=== PATIENT | male | born 1955 | race Two or more races ===

== ENCOUNTER → 2020-11-20 | Outpatient (CLI) | payer MEDICARE | END | disposition home or self-care (01) | LOC: STAR 14:54 | PROVIDERS: ATTEND Internal Medicine | DX: Z20.822 Contact with and (suspected) exposure to COVID-19 (principal) | CPT/HCPCS: U0003; U0005 ==

== ENCOUNTER 2020-11-24 11:49 | Day surgery (SDC) | payer MEDICARE ==
[~2020-11-24] VITALS: Ht 170.2 cm; Wt 84.9 kg
[2020-11-24] MEDS ORDERED: LORA10CA PO (13:00)
[2020-11-24] MEDS ORDERED: [UNRECOGNIZED DRUG - CODE] TRANSTRAC (13:00)
[2020-11-24 13:03] VITALS: BP 146/95
[2020-11-24] MEDS ORDERED: CHLORHEXIDINE 15 ML UDC ONE (13:16)
[2020-11-24] MEDS ORDERED: LACTATED RINGERS 1,000 ML IV SCH (13:30)
[2020-11-24] MEDS ORDERED: CHLORHEXIDINE 15 ML UDC PO ONE (13:30)
[2020-11-24] MEDS ORDERED: METOPROLOL 1 MG/ML, 5ML IV PRN (14:30)
[2020-11-24] MEDS ORDERED: HALOPERIDOL 5 MG/ML IV PRN (14:30)
[2020-11-24] MEDS ORDERED: MEPERIDINE/PF 25MG/0.5ML IVPush PRN (14:30)
[2020-11-24] MEDS ORDERED: PROMETHAZINE 25 MG/ML, 1ML IVPush PRN (14:30)
[2020-11-24] MEDS ORDERED: LABETALOL 5MG/ML, 20ML IV PRN (14:30)
[2020-11-24] MEDS ORDERED: DIPHENHYDRAMINE 50 MG/ML, 1ML IVPush PRN (14:30)
[2020-11-24] MEDS ORDERED: OXYcodone 5 MG/5 ML ORAL.SOL UDC PO PRN (14:30)
[2020-11-24] MEDS ORDERED: METOCLOPRAMIDE 5 MG/ML, 2ML IVPush PRN (14:30)
[2020-11-24] MEDS ORDERED: FENTANYL PF 100 MCG/2ML IV PRN (14:30)
[2020-11-24] MEDS ORDERED: EPHEDRINE 50 MG/ML, 1ML IVPush PRN (14:30)
[2020-11-24] MEDS ORDERED: ONDANSETRON 2MG/ML, 2ML IVPush PRN (14:30)
[2020-11-24] MEDS ORDERED: ACETAMINOPHEN 325 MG TABLET PO PRN (14:30)
[2020-11-24] MEDS ORDERED: PROPOFOL 10 MG/ML, 50ML ONE (14:54)
[2020-11-24] MEDS ORDERED: FENTANYL PF 100 MCG/2ML ONE ×2 (14:58→16:35)
[2020-11-24] MEDS ORDERED: EPINEPHRINE SYRINGE 0.1 MG/ML, 10ML ONE (15:37)
[2020-11-24] MEDS ORDERED: ACETAMINOPHEN 650 MG/20.3 ML UDC ONE (15:53)
[2020-11-24] MEDS ORDERED: OXYcodone 5 MG/5 ML ORAL.SOL UDC ONE (15:55)
[2020-11-24] MEDS: hydrALAzine 20 MG/ML, 1ML IV PRN ×2 (16:03→16:33)
[2020-11-24] MEDS ORDERED: hydrALAzine 20 MG/ML, 1ML ONE (16:06)
== END 2020-11-24 17:45 | disposition home or self-care (01) ==
LOC: OR 11:49
PROVIDERS: ATTEND Internal Medicine
DX: C25.2 Malignant neoplasm of tail of pancreas (principal); C22.9 Malignant neoplasm of liver, not specified as primary or secondary; K29.50 Unspecified chronic gastritis without bleeding; F12.90 Cannabis use, unspecified, uncomplicated; Z88.0 Allergy status to penicillin; Z79.899 Other long term (current) drug therapy; Z72.89 Other problems related to lifestyle
CPT/HCPCS: 43239; 43242; 88172; 88173; 88305; 88307; 93005; J0360; J3010; J7120; J2704

== ENCOUNTER 2020-12-11 11:57 | Day surgery (SDC) | payer MEDICARE ==
[~2020-12-11] VITALS: Ht 170.2 cm; Wt 82.0 kg
[~2020-12-11 11:57] MED LIST: LORA10CA PO; [UNRECOGNIZED DRUG - CODE] TRANSTRAC
[2020-12-11 12:36] VITALS: BP 125/80
[2020-12-11] MEDS ORDERED: VANCOMYCIN PMX 1GM/200ML 200 ML IV ONE (13:00)
[2020-12-11] MEDS ORDERED: VANCOMYCIN 1,000 MG in SODIUM CHLORIDE 0.9% 100 ML IV ONE (13:00)
[2020-12-11] MEDS ORDERED: LIDOCAINE 1%, 20ML ONE (13:23)
[2020-12-11] MEDS ORDERED: LIDOCAINE 1%, 10ML ONE (13:23)
[2020-12-11] MEDS ORDERED: SODIUM CHLORIDE 0.9% 1,000 ML IV SCH (13:30)
[2020-12-11] MEDS ORDERED: MIDAZOLAM 1 MG/ML, 5ML ONE ×2 (14:08)
[2020-12-11] MEDS ORDERED: FLUMAZENIL 0.1 MG/1 ML, 5ML ONE (14:08)
[2020-12-11] MEDS ORDERED: FENTANYL PF 100 MCG/2ML ONE (14:08)
[2020-12-11] MEDS ORDERED: NALOXONE 1 MG/ML, 2ML ONE ×2 (14:09)
== END 2020-12-11 16:15 | disposition home or self-care (01) ==
LOC: OUT 11:57
PROVIDERS: ATTEND Pathology Hematology
DX: C25.2 Malignant neoplasm of tail of pancreas (principal); E11.9 Type 2 diabetes mellitus without complications; Z79.899 Other long term (current) drug therapy; Z87.891 Personal history of nicotine dependence; Z88.0 Allergy status to penicillin; Z88.1 Allergy status to other antibiotic agents
CPT/HCPCS: 36561; 76937; 77001; 99156; 99157; C1788; C1894; J1642; J2250; J2310; J3010; J3370; J7030

== ENCOUNTER → 2021-01-08 | Outpatient (CLI) | payer MEDICARE ==
[~2021-01-08] MED LIST changes: +OMNIPAQUE 350 MG/ML, 100ML BOTTLE ONE
== END | disposition home or self-care (01) ==
LOC: CFH 08:07
PROVIDERS: ATTEND Pathology Hematology
DX: C25.2 Malignant neoplasm of tail of pancreas (principal); C78.7 Secondary malignant neoplasm of liver and intrahepatic bile duct; I26.99 Other pulmonary embolism without acute cor pulmonale
CPT/HCPCS: 74177; Q9967